=== PATIENT | female | born 1950 | race Two or more races ===

== ENCOUNTER 2022-01-29 09:04 | Outpatient (CLI) | payer OTHER | END 2022-01-29 09:19 | disposition home or self-care (01) | LOC: RAD 09:04 | PROVIDERS: ATTEND Internal Medicine | DX: R10.84 Generalized abdominal pain (principal); N32.89 Other specified disorders of bladder; N81.10 Cystocele, unspecified | CPT/HCPCS: 51600; 74455; 76856; A9698 ==

== ENCOUNTER 2023-04-07 10:45 | Day surgery (SDC) | payer OTHER | END 2023-04-07 15:30 | disposition home or self-care (01) | LOC: AMB-ENDOS 10:45 | PROVIDERS: ATTEND Internal Medicine Gastroenterology | DX: K57.30 Diverticulosis of large intestine without perforation or abscess without bleeding (principal); D12.3 Benign neoplasm of transverse colon; K64.8 Other hemorrhoids; Z88.0 Allergy status to penicillin; Z88.6 Allergy status to analgesic agent ==

== ENCOUNTER 2023-06-10 09:20 | Outpatient (CLI) | payer OTHER | END 2023-06-10 09:27 | disposition home or self-care (01) | LOC: TOM 09:20 | PROVIDERS: ATTEND Internal Medicine Gastroenterology | DX: K57.30 Diverticulosis of large intestine without perforation or abscess without bleeding (principal); Z86.010 Personal history of colon polyps; K56.600 Partial intestinal obstruction, unspecified as to cause ==

== ENCOUNTER 2023-07-20 01:19 | Inpatient (IN) | payer OTHER ==
[~2023-07-20] VITALS: Ht 160 cm; Wt 85.3 kg
[2023-07-20] MEDS ORDERED: AVAPRO150 MG PO (01:35)
[2023-07-20] MEDS ORDERED: MONTELUKAST SOD10 MG PO (01:35)
[2023-07-20 06:04] LABS: HEMATOCRIT 32.3 % (36.0-45.00); HEMOGLOBIN 10.6 g/dL (12.0-15.00); MEAN CELL VOLUME 88.2 fL (80.00-100.00); MEAN CORPUSCULAR HEMOGLOBIN 29.1 pg (27.00-32.0); PLATELET COUNT 296 K/uL (150-450); RED BLOOD COUNT 3.66 M/uL (4.00-6.00); RED CELL DISTRIBUTION WIDTH 13.1 % (11.5-14.5)
[2023-07-20 06:33] LABS: INR 0.94; PARTIAL THROMBOPLASTIN TIME 24.9 SECONDS (22.0-34.0); PROTHROMBIN TIME 9.9 SECONDS (9.0-11.5)
[2023-07-20 06:50] LABS: ALBUMIN 2.9 gm/dL (3.4-5.0); BILIRUBIN TOTAL 0.48 mg/dL (0.3-1.2); CALCIUM 8.3 mg/dL (8.5-10.1); CREATININE SERUM 0.6 mg/dL (0.55-1.02); GFR 98.55; GLOBULINA 3.8 G/DL (2.4-3.5); POTASSIUM 3.79 mEq/L (3.5-5.1); TOTAL PROTEIN 6.7 gm/dL (6.4-8.2)
[2023-07-20 12:56] LABS: URINE APPEARANCE Clear; URINE BILIRRUBIN Negative (NEGATIVE); URINE BLOOD Negative; URINE COLOR Yellow; URINE GLUCOSE Negative (NEGATIVE); URINE LEUKOCYTE Trace; URINE NITRATE Negative; URINE PROTEIN Negative (NEGATIVE); URINE UROBILINOGEN 0.2 E.U./dl
[2023-07-20 12:58] LABS: URINE BACTERIA 1481.7 uL (0.0-1933); URINE EPITHELIAL CELLS 13.5 uL (0.0-38.8); URINE RBC 4.4 uL (0.0-20.8); URINE WBC 11.2 uL (0.0-23.2)
[2023-07-20 20:38] LABS: PH,URINE 5.5 (5.0-8.0); URINE APPEARANCE Cloudy; URINE BILIRRUBIN Negative (NEGATIVE); URINE BLOOD Negative; URINE COLOR Yellow; URINE GLUCOSE Negative (NEGATIVE); URINE LEUKOCYTE Small; URINE NITRATE Negative; URINE PROTEIN Negative (NEGATIVE); URINE UROBILINOGEN 0.2 E.U./dl; ob POSITIVE (NEGATIVE)
[2023-07-20 20:41] LABS: URINE EPITHELIAL CELLS 80.5 uL (0.0-38.8); URINE WBC 39.4 uL (0.0-23.2)
[2023-07-22 06:13] LABS: HEMATOCRIT 29.4 % (36.0-45.00); HEMOGLOBIN 9.9 g/dL (12.0-15.00); MEAN CORPUSCULAR HEMOGLOBIN 29.3 pg (27.00-32.0); MEAN CORPUSCULAR HGB CONC 33.7 g/dl (32.0-36.0); PLATELET COUNT 300 K/uL (150-450); RED BLOOD COUNT 3.37 M/uL (4.00-6.00); RED CELL DISTRIBUTION WIDTH 13.4 % (11.5-14.5)
[2023-07-22 06:50] LABS: ALBUMIN 2.7 gm/dL (3.4-5.0); BILIRUBIN TOTAL 0.34 mg/dL (0.3-1.2); CREATININE SERUM 0.54 mg/dL (0.55-1.02); GFR 111.29; GLOBULINA 3.2 G/DL (2.4-3.5); MAGNESIUM 2.1 mg/dL (1.8-2.4); POTASSIUM 4.23 mEq/L (3.5-5.1); TOTAL PROTEIN 5.9 gm/dL (6.4-8.2)
[2023-07-22 23:40] LABS: HEMATOCRIT 33.4 % (36.0-45.00); MEAN CELL VOLUME 87.7 fL (80.00-100.00); MEAN CORPUSCULAR HGB CONC 33.1 g/dl (32.0-36.0); RED BLOOD COUNT 3.81 M/uL (4.00-6.00); RED CELL DISTRIBUTION WIDTH 13.5 % (11.5-14.5)
[2023-07-22 23:41] LABS: HEMOGLOBIN 11.1 g/dL (12.0-15.00); MEAN CORPUSCULAR HEMOGLOBIN 29.1 pg (27.00-32.0); PLATELET COUNT 305 K/uL (150-450)
[2023-07-23 07:02] LABS: HEMATOCRIT 30.5 % (36.0-45.00); HEMOGLOBIN 10.1 g/dL (12.0-15.00); MEAN CELL VOLUME 88.2 fL (80.00-100.00); MEAN CORPUSCULAR HEMOGLOBIN 29.3 pg (27.00-32.0); MEAN CORPUSCULAR HGB CONC 33.2 g/dl (32.0-36.0); PLATELET COUNT 310 K/uL (150-450); RED BLOOD COUNT 3.45 M/uL (4.00-6.00); RED CELL DISTRIBUTION WIDTH 13.4 % (11.5-14.5)
[2023-07-23 07:36] LABS: ALBUMIN 2.8 gm/dL (3.4-5.0); BILIRUBIN TOTAL 0.31 mg/dL (0.3-1.2); CALCIUM 8.2 mg/dL (8.5-10.1); CREATININE SERUM 0.59 mg/dL (0.55-1.02); GFR 100.48; GLOBULINA 3.2 G/DL (2.4-3.5); PHOSPHOROUS 2.8 mg/dL (2.5-4.9); POTASSIUM 4.07 mEq/L (3.5-5.1)
[2023-07-24 06:21] LABS: HEMATOCRIT 30.4 % (36.0-45.00); HEMOGLOBIN 10.2 g/dL (12.0-15.00); MEAN CELL VOLUME 88.4 fL (80.00-100.00); MEAN CORPUSCULAR HEMOGLOBIN 29.6 pg (27.00-32.0); MEAN CORPUSCULAR HGB CONC 33.5 g/dl (32.0-36.0); PLATELET COUNT 269 K/uL (150-450); RED BLOOD COUNT 3.43 M/uL (4.00-6.00); RED CELL DISTRIBUTION WIDTH 13.7 % (11.5-14.5)
[2023-07-24 06:58] LABS: CALCIUM 7.9 mg/dL (8.5-10.1); CREATININE SERUM 0.57 mg/dL (0.55-1.02); GFR 104.56; MAGNESIUM 1.9 mg/dL (1.8-2.4); PHOSPHOROUS 2.9 mg/dL (2.5-4.9); POTASSIUM 4.08 mEq/L (3.5-5.1)
[2023-07-25 08:20] LABS: HEMATOCRIT 30.7 % (36.0-45.00); HEMOGLOBIN 10.3 g/dL (12.0-15.00); MEAN CELL VOLUME 89.3 fL (80.00-100.00); MEAN CORPUSCULAR HEMOGLOBIN 29.8 pg (27.00-32.0); MEAN CORPUSCULAR HGB CONC 33.4 g/dl (32.0-36.0); PLATELET COUNT 321 K/uL (150-450); RED BLOOD COUNT 3.44 M/uL (4.00-6.00); RED CELL DISTRIBUTION WIDTH 13.6 % (11.5-14.5)
[2023-07-25 08:51] LABS: ALBUMIN 2.6 gm/dL (3.4-5.0); CALCIUM 7.5 mg/dL (8.5-10.1); CREATININE SERUM 0.59 mg/dL (0.55-1.02); GFR 100.48; MAGNESIUM 1.8 mg/dL (1.8-2.4); PHOSPHOROUS 3.3 mg/dL (2.5-4.9); POTASSIUM 4.41 mEq/L (3.5-5.1)
[2023-07-27 06:28] LABS: HEMATOCRIT 31.9 % (36.0-45.00); HEMOGLOBIN 10.8 g/dL (12.0-15.00); MEAN CELL VOLUME 89.7 fL (80.00-100.00); MEAN CORPUSCULAR HEMOGLOBIN 30.3 pg (27.00-32.0); MEAN CORPUSCULAR HGB CONC 33.7 g/dl (32.0-36.0); PLATELET COUNT 327 K/uL (150-450); RED BLOOD COUNT 3.55 M/uL (4.00-6.00); RED CELL DISTRIBUTION WIDTH 13.7 % (11.5-14.5)
[2023-07-27 07:17] LABS: ALBUMIN 2.6 gm/dL (3.4-5.0); CALCIUM 8.4 mg/dL (8.5-10.1); CREATININE SERUM 0.57 mg/dL (0.55-1.02); GFR 104.56; MAGNESIUM 1.9 mg/dL (1.8-2.4); PHOSPHOROUS 2.3 mg/dL (2.5-4.9); POTASSIUM 3.99 mEq/L (3.5-5.1)
[2023-07-29 07:35] LABS: HEMATOCRIT 29.5 % (36.0-45.00); HEMOGLOBIN 9.9 g/dL (12.0-15.00); MEAN CELL VOLUME 88.1 fL (80.00-100.00); MEAN CORPUSCULAR HEMOGLOBIN 29.5 pg (27.00-32.0); MEAN CORPUSCULAR HGB CONC 33.5 g/dl (32.0-36.0); PLATELET COUNT 340 K/uL (150-450); RED BLOOD COUNT 3.35 M/uL (4.00-6.00); RED CELL DISTRIBUTION WIDTH 14.6 % (11.5-14.5)
[2023-07-29 07:53] LABS: CALCIUM 8.5 mg/dL (8.5-10.1); CREATININE SERUM 0.54 mg/dL (0.55-1.02); GFR 111.29; MAGNESIUM 1.9 mg/dL (1.8-2.4); POTASSIUM 4.49 mEq/L (3.5-5.1)
[2023-07-31] MEDS ORDERED: INTESTINEX680 M1 PO (09:20)
[2023-07-31] MEDS ORDERED: TRAMADOL HCL E100 MG PO (09:21)
== END 2023-07-31 13:01 | disposition home or self-care (01) | DRG 330 ==
LOC: ER 01:19 → MEDJ 18:29 → SURG 07-24 16:35 → MEDJ 07-24 23:54 → SURH 07-25 14:26
PROVIDERS: General Practice; Surgery; ADMIT Internal Medicine; ATTEND Internal Medicine
PROC: BW21ZZZ Computerized Tomography (CT Scan) of Abdomen and Pelvis (ICD-10-PCS; 2023-07-20)
PROC: CD1YYZZ Planar Nuclear Medicine Imaging of Digestive System using Other Radionuclide (ICD-10-PCS; 2023-07-20)
PROC: 0DJD8ZZ Inspection of Lower Intestinal Tract, Via Natural or Artificial Opening Endoscopic (ICD-10-PCS; 2023-07-23)
PROC: 0DBP4ZZ Excision of Rectum, Percutaneous Endoscopic Approach (ICD-10-PCS; 2023-07-24)
PROC: 0DNW4ZZ Release Peritoneum, Percutaneous Endoscopic Approach (ICD-10-PCS; 2023-07-24)
PROC: 02HV33Z Insertion of Infusion Device into Superior Vena Cava, Percutaneous Approach (ICD-10-PCS; 2023-07-24)
PROC: 0DTN4ZZ Resection of Sigmoid Colon, Percutaneous Endoscopic Approach (ICD-10-PCS; principal; 2023-07-24 11:00)
DX: K57.31 Diverticulosis of large intestine without perforation or abscess with bleeding (principal); D62 Acute posthemorrhagic anemia; K56.699 Other intestinal obstruction unspecified as to partial versus complete obstruction; D64.9 Anemia, unspecified; K64.8 Other hemorrhoids; K66.0 Peritoneal adhesions (postprocedural) (postinfection); R33.9 Retention of urine, unspecified

== ENCOUNTER 2024-08-25 07:07 | Day surgery (SDC) | payer OTHER ==
[~2024-08-25 07:07] MED LIST: AVAPRO150 MG PO; INTESTINEX680 M1 PO; MONTELUKAST SOD10 MG PO; TRAMADOL HCL E100 MG PO
[2024-08-25] MEDS ORDERED: fentaNYL CITRATE 50 MCG/ML AMPUL IV ONE (10:00)
[2024-08-25] MEDS ORDERED: DIPHENHYDRAMINE HCL 50 MG/ML VIAL 1ML IV ONE (10:00)
[2024-08-25] MEDS ORDERED: MIDAZOLAM HCL 2 MG/2 ML VIAL IV ONE (10:00)
== END 2024-08-25 10:55 | disposition home or self-care (01) ==
LOC: AMB-ENDOS 07:07
PROVIDERS: ATTEND Surgery
DX: K56.690 Other partial intestinal obstruction (principal); K57.30 Diverticulosis of large intestine without perforation or abscess without bleeding; K62.5 Hemorrhage of anus and rectum; K64.8 Other hemorrhoids; Z88.6 Allergy status to analgesic agent; Z88.0 Allergy status to penicillin; Z91.09 Other allergy status, other than to drugs and biological substances

== ENCOUNTER 2024-11-04 13:45 | Inpatient (IN) | payer OTHER ==
[~2024-11-04] VITALS: Ht 152.4 cm; Wt 86.2 kg
[2024-11-04] MEDS ORDERED: BENTYL10 MG/1 ML (13:56)
[2024-11-04] MEDS ORDERED: LEVALBUTEROL HCL 1.25 MG/3 ML SOLUTION IH SCH (14:30)
[2024-11-04] MEDS ORDERED: 0.9 % SODIUM CHLORIDE 500 ML IV ONE (14:30)
[2024-11-04] MEDS ORDERED: IPRATROPIUM BROMIDE 0.5 MG/2.5 ML AMPUL.NEB IH SCH (14:30)
[2024-11-04] MEDS ORDERED: FAMOTIDINE/PF 20 MG/2 ML VIAL IV ONE (14:30)
[2024-11-04] MEDS ORDERED: GUAIFENESIN/DEXTROMETHORPHAN 100MG/10ML BLIST.PACK PO ONE (14:30)
[2024-11-04 16:44] LABS: HEMATOCRIT 33.7 % (36.0-45.00); HEMOGLOBIN 11.2 g/dL (12.0-15.00); MEAN CORPUSCULAR HEMOGLOBIN 29.2 pg (27.00-32.0); MEAN CORPUSCULAR HGB CONC 33.2 g/dl (32.0-36.0); PLATELET COUNT 254 K/uL (150-450); RED BLOOD COUNT 3.82 M/uL (4.00-6.00); RED CELL DISTRIBUTION WIDTH 13.4 % (11.5-14.5)
[2024-11-04 17:21] LABS: COVID-19 AG NEGATIVE (NEGATIVE)
[2024-11-04 17:22] LABS: INFLUENZA A AG POSITIVE (NEGATIVE)
[2024-11-04] MEDS ORDERED: OSELTAMIVIR PHOSPHATE 75 MG CAPSULE PO ONE (17:30)
[2024-11-04 18:34] LABS: ABG PH 7.442 (7.35-7.45); ABG PO2 66.2 mmHg (80-100); ABG pCO2 39.9 mmHg (35-45); BASE EXCESS 2.4 mmol/l; BICARBONATE 26.6 mmol/l (23-25); SaO2 93.8 %; Tco2 27.9 mmol/l
[2024-11-04 18:59] LABS: INR 1.01; PARTIAL THROMBOPLASTIN TIME 24.5 SECONDS (22.0-34.0)
[2024-11-04 19:06] LABS: ALBUMIN 2.9 gm/dL (3.4-5.0); BILIRUBIN TOTAL 0.25 mg/dL (0.3-1.2); CALCIUM 8.4 mg/dL (8.5-10.1); CREATININE SERUM 0.64 mg/dL (0.55-1.02); GFR 91.22; GLOBULINA 3.8 G/DL (2.4-3.5); POTASSIUM 3.84 mEq/L (3.5-5.1); TOTAL PROTEIN 6.7 gm/dL (6.4-8.2)
[2024-11-04 19:10] LABS: allen test SATISFACTORY; mode ROOM AIR; o2 21 %; puncture site RADIAL RIGHT
[2024-11-04] MEDS ORDERED: IPRATROPIUM BROMIDE 0.5 MG/2.5 ML AMPUL.NEB IH ONE (21:15)
[2024-11-04] MEDS ORDERED: MAGNESIUM SULFATE 2,000 MG in 0.9 % SODIUM CHLORIDE 100 ML IV ONE (21:15)
[2024-11-04] MEDS ORDERED: LEVALBUTEROL HCL 1.25 MG/3 ML SOLUTION IH ONE (21:15)
[2024-11-04] MEDS ORDERED: XOPENEX CO1.25 MG/0. IH (22:53)
[2024-11-04] MEDS ORDERED: SINGULAIR10 MG PO (22:53)
[2024-11-04] MEDS ORDERED: TUSSIN DM LIQU118 ML PO (22:53)
[2024-11-04] MEDS ORDERED: INTESTINEX680 M1 PO (22:53)
[2024-11-04] MEDS ORDERED: PROTONIX40 MG PO (22:53)
[2024-11-04] MEDS ORDERED: IPRATROPIU0.2 MG/1 M IH (22:53)
[2024-11-04] MEDS ORDERED: OSEL75CA PO (22:53)
[2024-11-04 23:37] LABS: ABG PH 7.401 (7.35-7.45); ABG PO2 60.4 mmHg (80-100); ABG pCO2 41.5 mmHg (35-45); BASE EXCESS 0.3 mmol/l; BICARBONATE 25.2 mmol/l (23-25); SaO2 90.8 %; Tco2 26.4 mmol/l
[2024-11-05] MEDS ORDERED: levoFLOXacin IN DEXTROSE 5 % 150 ML IV SCH (00:03)
[2024-11-05] MEDS ORDERED: OSELTAMIVIR PHOSPHATE 75 MG CAPSULE PO SCH (00:06)
[2024-11-05] MEDS ORDERED: ACETAMINOPHEN 500 MG GEL..CAP PO PRN (00:15)
[2024-11-05] MEDS ORDERED: 0.9 % SODIUM CHLORIDE 1,000 ML IV SCH (00:15)
[2024-11-05] MEDS ORDERED: METHYLPREDNISOLONE SOD SUCC 125 MG VIAL IV ONE (00:15)
[2024-11-05] MEDS ORDERED: DIPHENHYDRAMINE HCL 50 MG/ML VIAL 1ML IV ONE (00:15)
[2024-11-05] MEDS ORDERED: IPRATROPIUM BROMIDE 0.5 MG/2.5 ML AMPUL.NEB IH SCH (01:00)
[2024-11-05] MEDS ORDERED: LEVALBUTEROL HCL 1.25 MG/3 ML SOLUTION IH SCH (01:00)
[2024-11-05] MEDS ORDERED: GUAIFEN/DEXTROMETHORPHAN/PE 10 ML BLIST.PACK PO SCH (01:00)
[2024-11-05] MEDS ORDERED: ENOXAPARIN SODIUM 40 MG/0.4 ML SYRINGE SUBCUTANEO SCH (09:00)
[2024-11-05] MEDS ORDERED: IRBESARTAN 150 MG TABLET PO SCH (09:00)
[2024-11-05] MEDS ORDERED: BUDESONIDE 0.5 MG/2 ML AMPUL.NEB IH SCH (09:00)
[2024-11-05] MEDS ORDERED: FAMOTIDINE/PF 20 MG in 0.9 % SODIUM CHLORIDE 8 ML IV PUSH SCH (09:00)
[2024-11-05] MEDS ORDERED: GUAIFEN/DEXTROMETHORPHAN/PE 10 ML BLIST.PACK PO ONE (14:44)
[2024-11-05] MEDS ORDERED: ACETAMINOPHEN 500 MG GEL..CAP PO ONE (14:44)
[2024-11-05 16:50] LABS: C-REACTIVE PROTEIN 5.56 MG/DL (0.00-0.29); MAGNESIUM 1.8 mg/dL (1.8-2.4)
[2024-11-05 16:59] VITALS: BP 128/69; O2SAT 98
[2024-11-05] MEDS ORDERED: MONTELUKAST SODIUM 10 MG TABLET PO SCH (17:00)
[2024-11-05 17:25] LABS: ob POSITIVE (NEGATIVE)
[2024-11-05 23:45] LABS: o2 21 %
[2024-11-05 23:46] LABS: allen test SATISFACTORY; mode ROOM AIR; puncture site RADIAL RIGHT
[2024-11-06 03:05] VITALS: BP 106/65; O2SAT 97
[2024-11-06] MEDS ORDERED: levoFLOXacin IN DEXTROSE 5 % 5 MG/ML PIGGYBAG IV ONE (08:11)
[2024-11-06] MEDS ORDERED: GUAIFEN/DEXTROMETHORPHAN/PE 10 ML BLIST.PACK PO ONE ×2 (13:16→16:56)
[2024-11-06] MEDS ORDERED: OSELTAMIVIR PHOSPHATE 75 MG CAPSULE PO ONE (16:07)
[2024-11-06] MEDS ORDERED: MONTELUKAST SODIUM 10 MG TABLET PO ONE (16:07)
[2024-11-06 16:42] LABS: HEMATOCRIT 27.9 % (36.0-45.00); HEMOGLOBIN 9.2 g/dL (12.0-15.00); MEAN CELL VOLUME 88.4 fL (80.00-100.00); MEAN CORPUSCULAR HEMOGLOBIN 29.3 pg (27.00-32.0); MEAN CORPUSCULAR HGB CONC 33.1 g/dl (32.0-36.0); PLATELET COUNT 231 K/uL (150-450); RED BLOOD COUNT 3.15 M/uL (4.00-6.00); RED CELL DISTRIBUTION WIDTH 13.2 % (11.5-14.5)
[2024-11-06 16:49] VITALS: BP 135/67; O2SAT 100
[2024-11-06 17:02] LABS: URINE APPEARANCE Cloudy; URINE BILIRRUBIN Negative (NEGATIVE); URINE BLOOD Small; URINE COLOR Yellow; URINE GLUCOSE Negative (NEGATIVE); URINE KETONE 15 (NEGATIVE); URINE LEUKOCYTE Negative; URINE NITRATE Negative; URINE PROTEIN Trace (NEGATIVE); URINE UROBILINOGEN 0.2 E.U./dl
[2024-11-06 17:06] LABS: URINE BACTERIA 2362.1 uL (0.0-1933); URINE EPITHELIAL CELLS 68.5 uL (0.0-38.8); URINE RBC 8.8 uL (0.0-20.8); URINE WBC 23.8 uL (0.0-23.2)
[2024-11-06 17:07] LABS: URINE CAST 0.44 uL (0.0-1.40)
[2024-11-06 22:23] VITALS: BP 131/77
[2024-11-07 01:02] VITALS: BP 149/70; O2SAT 98
[2024-11-07 06:35] LABS: HEMATOCRIT 25.8 % (36.0-45.00); MEAN CELL VOLUME 86.6 fL (80.00-100.00); MEAN CORPUSCULAR HGB CONC 34.3 g/dl (32.0-36.0); PLATELET COUNT 236 K/uL (150-450); RED BLOOD COUNT 2.97 M/uL (4.00-6.00); RED CELL DISTRIBUTION WIDTH 13.5 % (11.5-14.5)
[2024-11-07 06:56] LABS: HEMOGLOBIN 8.8 g/dL (12.0-15.00); MEAN CORPUSCULAR HEMOGLOBIN 29.6 pg (27.00-32.0)
[2024-11-07 08:11] LABS: INR 1.05; PARTIAL THROMBOPLASTIN TIME 30.4 SECONDS (22.0-34.0); PROTHROMBIN TIME 11.4 SECONDS (9.0-11.5)
[2024-11-07 09:16] VITALS: BP 141/81
[2024-11-07] MEDS ORDERED: ONDANSETRON HCL 2 MG/ML VIAL IV PRN (13:15)
[2024-11-07 18:19] VITALS: BP 134/70
[2024-11-07 19:02] VITALS: BP 135/70
[2024-11-08 01:43] VITALS: BP 136/69
[2024-11-08 06:48] LABS: HEMATOCRIT 28.4 % (36.0-45.00); HEMOGLOBIN 9.7 g/dL (12.0-15.00); MEAN CELL VOLUME 86.3 fL (80.00-100.00); MEAN CORPUSCULAR HEMOGLOBIN 29.5 pg (27.00-32.0); MEAN CORPUSCULAR HGB CONC 34.2 g/dl (32.0-36.0); PLATELET COUNT 264 K/uL (150-450); RED BLOOD COUNT 3.29 M/uL (4.00-6.00); RED CELL DISTRIBUTION WIDTH 13.3 % (11.5-14.5)
[2024-11-08 07:40] LABS: CALCIUM 7.6 mg/dL (8.5-10.1); CREATININE SERUM 0.49 mg/dL (0.55-1.02); GFR 124.14; POTASSIUM 3.54 mEq/L (3.5-5.1)
[2024-11-08 10:14] VITALS: BP 128/77; O2SAT 100
[2024-11-09 00:23] VITALS: BP 118/74
[2024-11-09] MEDS ORDERED: NA PHOS,M-B/NA PHOS,DI-BA 1 BOTTLE ENEMA RECTAL NR (05:00)
[2024-11-09 08:00] VITALS: BP 148/60; O2SAT 96
[2024-11-09 08:46] LABS: HEMOGLOBIN 9.1 g/dL (12.0-15.00); MEAN CELL VOLUME 86.3 fL (80.00-100.00); MEAN CORPUSCULAR HEMOGLOBIN 29.1 pg (27.00-32.0); MEAN CORPUSCULAR HGB CONC 33.7 g/dl (32.0-36.0); PLATELET COUNT 229 K/uL (150-450); RED BLOOD COUNT 3.13 M/uL (4.00-6.00); RED CELL DISTRIBUTION WIDTH 13.3 % (11.5-14.5)
[2024-11-09] MEDS ORDERED: MIDAZOLAM HCL 2 MG/2 ML VIAL IV STA (14:31)
[2024-11-09] MEDS ORDERED: fentaNYL CITRATE 50 MCG/ML AMPUL IV STA (14:32)
[2024-11-09 17:59] VITALS: BP 144/71; O2SAT 98
[2024-11-09] MEDS ORDERED: SIMETHICONE 125 MG CAPSULE PO PRN (18:15)
[2024-11-09] MEDS ORDERED: METHYLPREDNISOLONE SOD SUCC 40 MG VIAL IV SCH (20:47)
[2024-11-09] MEDS ORDERED: DIPHENHYDRAMINE HCL 12.5 MG/5 ML BLIST.PACK PO SCH (21:00)
[2024-11-10 02:08] VITALS: BP 142/83; O2SAT 93
[2024-11-10] MEDS ORDERED: DIPHENHYDRAMINE HCL 50 MG/ML VIAL 1ML IV SCH (17:00)
[2024-11-10 18:22] VITALS: BP 124/62; O2SAT 100
[2024-11-11 02:29] VITALS: BP 137/73; O2SAT 95
[2024-11-11 08:29] VITALS: BP 147/84
[2024-11-11 16:54] VITALS: BP 139/70; O2SAT 98
[2024-11-11] MEDS ORDERED: METHYLPREDNISOLONE SOD SUCC 40 MG VIAL IV SCH (17:00)
[2024-11-12 00:51] VITALS: BP 139/75; O2SAT 91
[2024-11-12 08:13] VITALS: BP 146/75
[2024-11-12 18:47] VITALS: BP 160/81; O2SAT 96
[2024-11-13 01:18] VITALS: BP 147/74; O2SAT 93
[2024-11-13 07:44] LABS: BASO % 0.2 % (0.1-1.2); HEMATOCRIT 29.9 % (34.1-44.9); HEMOGLOBIN 9.7 g/dL (11.2-15.7); LYMPH # 0.49 (1.18-3.74); MEAN CORPUSCULAR HEMOGLOBIN 28.8 pg (25.6-32.2); MONO # 0.21 (0.24-0.82); MONO % 2.6 % (4.7-12.5); NEUT # 7.32 (1.56-6.13); NEUT % 89.2 % (34.0-71.1); PLATELET COUNT 329 K/uL (163-369); RED BLOOD COUNT 3.37 M/uL (3.93-5.22); RED CELL DISTRIBUTION WIDTH 12.4 % (11.6-14.4)
[2024-11-13 08:17] LABS: CALCIUM 8.2 mg/dL (8.5-10.1); CREATININE SERUM 0.69 mg/dL (0.55-1.02); GFR 83.63; POTASSIUM 3.83 mEq/L (3.5-5.1)
[2024-11-13 08:26] VITALS: BP 153/90
[2024-11-13] MEDS ORDERED: METHYLPREDNISOLONE SOD SUCC 40 MG VIAL IV SCH (17:00)
[2024-11-13 18:55] VITALS: BP 160/85; O2SAT 96
[2024-11-14 01:22] VITALS: BP 145/70; O2SAT 98
[2024-11-14 08:27] VITALS: BP 155/86; O2SAT 95
[2024-11-14 17:30] VITALS: BP 146/83
[2024-11-15] MEDS ORDERED: METHYLPREDNISOLONE SOD SUCC 40 MG VIAL IV SCH (01:00)
[2024-11-15 02:30] VITALS: BP 146/83; O2SAT 95
[2024-11-15 08:16] VITALS: BP 157/86; O2SAT 95
[2024-11-15 17:27] VITALS: BP 169/80
[2024-11-16 01:40] VITALS: BP 141/67; O2SAT 95
[2024-11-16 08:25] VITALS: BP 115/65; O2SAT 97
[2024-11-16 08:26] VITALS: BP 145/75; O2SAT 92
[2024-11-16] MEDS ORDERED: METHYLPREDNISOLONE SOD SUCC 40 MG VIAL IV SCH (09:00)
[2024-11-16 18:23] VITALS: BP 169/82; O2SAT 94
[2024-11-17 01:29] VITALS: BP 154/85; O2SAT 95
[2024-11-17 09:37] VITALS: BP 167/100; O2SAT 95
[2024-11-17 14:53] LABS: ABG PO2 67.3 mmHg (80-100); ABG pCO2 43.7 mmHg (35-45)
[2024-11-17 14:54] LABS: BASE EXCESS 3.5 mmol/l; BICARBONATE 28.3 mmol/l (23-25); SaO2 93.9 %; Tco2 29.7 mmol/l; allen test SATISFACTORY; mode ROOM AIR; o2 21 %; puncture site RADIAL LEFT
[2024-11-17] MEDS ORDERED: METHYLPREDNISOLONE SOD SUCC 40 MG VIAL IV SCH (17:00)
[2024-11-17 17:37] VITALS: BP 137/81
[2024-11-18 01:26] VITALS: BP 143/79
[2024-11-18 07:23] LABS: BASO % 0.3 % (0.1-1.2); HEMATOCRIT 31.9 % (34.1-44.9); HEMOGLOBIN 10.1 g/dL (11.2-15.7); LYMPH # 0.32 (1.18-3.74); LYMPH % 2.9 % (19.3-53.1); MEAN CORPUSCULAR HEMOGLOBIN 27.8 pg (25.6-32.2); MONO # 0.58 (0.24-0.82); MONO % 5.2 % (4.7-12.5); NEUT # 9.87 (1.56-6.13); NEUT % 88.9 % (34.0-71.1); PLATELET COUNT 362 K/uL (163-369); RED BLOOD COUNT 3.63 M/uL (3.93-5.22); RED CELL DISTRIBUTION WIDTH 12.1 % (11.6-14.4)
[2024-11-18 08:13] LABS: ALBUMIN 2.7 gm/dL (3.4-5.0); BILIRUBIN TOTAL 0.2 mg/dL (0.3-1.2); CALCIUM 8.4 mg/dL (8.5-10.1); CREATININE SERUM 0.74 mg/dL (0.55-1.02); GFR 77.14; GLOBULINA 3.4 G/DL (2.4-3.5); POTASSIUM 4.84 mEq/L (3.5-5.1); TOTAL PROTEIN 6.1 gm/dL (6.4-8.2)
[2024-11-18 08:49] VITALS: BP 153/83; O2SAT 90
[2024-11-18] MEDS ORDERED: METHYLPREDNISOLONE SOD SUCC 40 MG VIAL IV SCH (17:00)
[2024-11-18 18:45] VITALS: BP 153/86
[2024-11-19 00:56] VITALS: BP 123/82
[2024-11-19 09:09] VITALS: BP 135/66; O2SAT 93
[2024-11-19 16:00] VITALS: BP 120/76; O2SAT 96
[2024-11-20 00:58] VITALS: BP 133/82
[2024-11-20 09:06] VITALS: BP 113/65; O2SAT 96
[2024-11-20] MEDS ORDERED: FAMOTIDINE/PF 20 MG/2 ML VIAL IV SCH (13:46)
[2024-11-20 16:00] VITALS: BP 131/82; O2SAT 95
[2024-11-21 01:24] VITALS: BP 127/78
[2024-11-21] MEDS ORDERED: ONDANSETRON HCL 2 MG/ML VIAL IV STA (08:22)
[2024-11-21] MEDS ORDERED: ONDANSETRON HCL 2 MG/ML VIAL IV PRN (08:30)
[2024-11-21] MEDS ORDERED: PANTOPRAZOLE SODIUM 40 MG/VIAL VIAL IV SCH (09:00)
[2024-11-21 09:10] VITALS: BP 122/70; O2SAT 97
[2024-11-21] MEDS ORDERED: SUCRALFATE 1 G TABLET PO NR (12:00)
[2024-11-21] MEDS ORDERED: PREDNISONE 10 MG TABLET PO NR (12:00)
[2024-11-21] MEDS ORDERED: SUCRALFATE 1 G TABLET PO SCH (17:00)
[2024-11-21 17:16] VITALS: BP 129/83; O2SAT 96
[2024-11-21 17:55] LABS: ALBUMIN 2.6 gm/dL (3.4-5.0); BILIRUBIN TOTAL 0.33 mg/dL (0.3-1.2); CALCIUM 7.7 mg/dL (8.5-10.1); CREATININE SERUM 0.73 mg/dL (0.55-1.02); GFR 78.37; GLOBULINA 3.1 G/DL (2.4-3.5); TOTAL PROTEIN 5.7 gm/dL (6.4-8.2)
[2024-11-21 19:51] LABS: HEMATOCRIT 33.7 % (34.1-44.9); HEMOGLOBIN 10.6 g/dL (11.2-15.7); RED BLOOD COUNT 3.71 M/uL (3.93-5.22)
[2024-11-21 19:52] LABS: BASO % 0.2 % (0.1-1.2); LYMPH % 2.9 % (19.3-53.1); MEAN CORPUSCULAR HEMOGLOBIN 28.6 pg (25.6-32.2); MONO % 4.1 % (4.7-12.5); NEUT % 89.8 % (34.0-71.1); PLATELET COUNT 294 K/uL (163-369)
[2024-11-22 01:15] VITALS: BP 102/61; O2SAT 94
[2024-11-22] MEDS ORDERED: PREDNISONE 10 MG TABLET PO SCH (09:00)
[2024-11-22 09:20] VITALS: BP 126/73; O2SAT 95
[2024-11-22 17:48] VITALS: BP 140/77
[2024-11-22 17:50] VITALS: BP 140/77
[2024-11-23 02:58] VITALS: BP 93/62; O2SAT 97
[2024-11-23 08:00] VITALS: BP 100/68; BP 157/92
[2024-11-23] MEDS ORDERED: LACTULOSE 20 G/30 ML BLIST.PACK PO NR (09:00)
[2024-11-23] MEDS ORDERED: NA PHOS,M-B/NA PHOS,DI-BA 1 BOTTLE ENEMA RECTAL NR (09:00)
[2024-11-23 19:02] VITALS: BP 107/70
[2024-11-24 04:11] VITALS: BP 101/67
[2024-11-24 08:42] VITALS: BP 104/75; O2SAT 99
[2024-11-24] MEDS ORDERED: POLYETHYLENE GLYCOL 3350 17 GM BLIST.PACK PO SCH (09:00)
== END 2024-11-24 14:47 | disposition home or self-care (01) | DRG 202 ==
LOC: ER 13:45 → MEDI 11-05 00:42 → MEDJ 11-05 00:42 → SEC-K 11-05 11:09 → MEDJ 11-06 16:59
PROVIDERS: Emergency Medicine; General Practice; Internal Medicine; ADMIT Internal Medicine; ATTEND Internal Medicine
PROC: BW21ZZZ Computerized Tomography (CT Scan) of Abdomen and Pelvis (ICD-10-PCS; principal; 2024-11-04)
PROC: 3E0F7GC Introduction of Other Therapeutic Substance into Respiratory Tract, Via Natural or Artificial Opening (ICD-10-PCS; 2024-11-05)
PROC: 0DBL8ZZ Excision of Transverse Colon, Via Natural or Artificial Opening Endoscopic (ICD-10-PCS; 2024-11-09)
PROC: 02HV33Z Insertion of Infusion Device into Superior Vena Cava, Percutaneous Approach (ICD-10-PCS; 2024-11-12)
DX: J45.41 Moderate persistent asthma with (acute) exacerbation (principal); J11.00 Influenza due to unidentified influenza virus with unspecified type of pneumonia; K29.71 Gastritis, unspecified, with bleeding; K62.5 Hemorrhage of anus and rectum; R09.02 Hypoxemia; K57.90 Diverticulosis of intestine, part unspecified, without perforation or abscess without bleeding